=== PATIENT | female | born 1990 | race Caucasian/White ===

== ENCOUNTER 2024-07-04 09:09 | Day surgery (SDC) | payer OTHER ==
[2024-06-27 12:33] VITALS: BMI 21.9
[2024-07-04] MEDS ORDERED: LIDOCAINE HCL/PF 2% SDV 5ML VIAL ONE (11:46)
[2024-07-04] MEDS ORDERED: MIDAZOLAM HCL 2 MG/2 ML SINGLE DOSE VIAL ONE (11:47)
[2024-07-04] MEDS ORDERED: EPINEPHrine/PF 1 MG/1 ML (1:1,000) AMPULE ONE (11:47)
[2024-07-04] MEDS ORDERED: PROPOFOL 20 ML ONE (11:47)
[2024-07-04] MEDS ORDERED: ceFAZolin SODIUM 1 GM VIAL ONE ×3 (11:47→12:21)
[2024-07-04] MEDS ORDERED: VANCOMYCIN 1,000 MG VIAL (RESTRICTED TO ID ONLY) ONE (11:47)
[2024-07-04] MEDS ORDERED: LIDOCAINE HCL 2% (20ML MULTI-DOSE VIAL) ONE (11:48)
[2024-07-04] MEDS ORDERED: SODIUM BICARBONATE 8.4% 50 MEQ/50 ML VIAL ONE (11:48)
[2024-07-04] MEDS ORDERED: GENTAMICIN SO4 80 MG/2 ML VIAL ONE (11:48)
[2024-07-04] MEDS ORDERED: BACITRACIN ZINC 15 GM TUBE TOPICAL OINTMENT ONE (11:48)
[2024-07-04] MEDS ORDERED: BUPIVACAINE HCL/EPINEPHRINE/PF 30 ML VIAL IJ ONE (11:48)
[2024-07-04] MEDS ORDERED: ONDANSETRON 4 MG/2 ML VIAL ONE ×2 (12:28)
[2024-07-04] MEDS ORDERED: KETOROLAC TROMETHAMINE 30 MG/1 ML VIAL ONE (12:28)
[2024-07-04] MEDS ORDERED: DEXAMETHASONE SOD PHOSPHATE 4 MG/1 ML VIAL ONE ×2 (12:28)
[2024-07-04] MEDS ORDERED: ACETAMINOPHEN INJECTION 100 ML ONE (14:34)
[2024-07-04] MEDS ORDERED: FENTANYL CITRATE/PF 50 MCG/ML VIAL ONE (14:38)
[2024-07-04] MEDS ORDERED: oxyCODONE HCL 5 MG TABLET PO PRN (14:38)
[2024-07-04] MEDS ORDERED: LACTATED RINGERS SOLUTION 1,000 ML IV SCH (14:45)
[2024-07-04] MEDS: PROMETHAZINE HCL 25 MG/1 ML VIAL IVPB PRN (15:20)
[2024-07-04] MEDS ORDERED: PROMETHAZINE HCL 25 MG/1 ML VIAL ONE (15:22)
[2024-07-04 16:10] VITALS: TEMP 97.8
[2024-07-04 17:01] VITALS: BP 124/81; PULSE 92; RESP 18
== END 2024-07-04 17:05 | disposition home or self-care (01) ==
LOC: FASU 09:09
PROVIDERS: ATTEND Plastic Surgery
PROC: 0HPT0JZ Removal of Synthetic Substitute from Right Breast, Open Approach (ICD-10-PCS; 2024-07-04)
PROC: 0HRV0JZ Replacement of Bilateral Breast with Synthetic Substitute, Open Approach (ICD-10-PCS; 2024-07-04)
PROC: 0HRV37Z Replacement of Bilateral Breast with Autologous Tissue Substitute, Percutaneous Approach (ICD-10-PCS; 2024-07-04)
PROC: 0HX5XZZ Transfer Chest Skin, External Approach (ICD-10-PCS; 2024-07-04)
PROC: 0HPU0JZ Removal of Synthetic Substitute from Left Breast, Open Approach (ICD-10-PCS; principal; 2024-07-04 12:35)
DX: N65.0 Deformity of reconstructed breast (principal); Z90.13 Acquired absence of bilateral breasts and nipples; T85.44XA Capsular contracture of breast implant, initial encounter; Y82.8 Other medical devices associated with adverse incidents; Y92.9 Unspecified place or not applicable
CPT/HCPCS: 14001; 15771; 15772; 19342; 19371; L8600; 81025; 88304-TC; 88305-TC; 94760; J0131